=== PATIENT | male | born 1950 | race Caucasian/White ===

== ENCOUNTER → 2017-12-16 09:45 | Outpatient (CLI) | payer MEDICARE, OTHER, SELFPAY ==
[2017-12-16 10:22] LABS: Add Manual Diff / Slide Review NO; Basophils Percent Auto 0.9 % (0-2); Hematocrit 37.1 % (41-53); Lymphocytes Percent Auto 21.3 % (25-40); Mean Corpuscular HGB Conc 32.5 % (30-36); Mean Corpuscular Hemoglobin 25.4 PG (26-34); Mean Corpuscular Volume 78.1 fL (80-100); Neutrophils Absolute Auto 4400 /uL (3000-5900); Neutrophils Percent Auto 63.8 % (50-75); Platelet Count 196 X10^3/uL (150-400); Red Blood Cell Count 4.75 X10^6/uL (4.5-5.9); White Blood Cell Count 6.8 X10^3/uL (4.5-11.0)
[2017-12-16 11:03] LABS: Alanine Aminotransferase 32 IU/L (21-72); Albumin 4.6 g/dL (3.5-5.0); Albumin Globulin Ratio 1.3 (1.0-2.8); Alkaline Phosphatase 105 U/L (38-126); Aspartate Aminotransferase 29 IU/L (17-59); Bilirubin Total 0.7 mg/dL (0.2-1.3); Blood Urea Nitrogen 18 mg/dL (9-20); Calcium 9.5 mg/dL (8.4-10.2); Carbon Dioxide 24 mmol/L (22-32); Chloride 105 mmol/L (98-107); Cholesterol 135 mg/dL (140-199); Estimated Glomerular Filt Rate > 60.0 mL/min (>60); Globulin 3.5 g/dL (1.7-4.1); Glucose 182 mg/dL (80-110); HDL Cholesterol 27 mg/dL (40-60); HEMOLYSIS < 15 (0-50); LDL Cholesterol Calculated 58 mg/dL (<100); Potassium 4.4 mmol/L (3.4-5.1); Sodium 141 mmol/L (137-145); Total Protein 8.1 g/dL (6.3-8.2); Triglycerides 249 mg/dL (35-150)
[2017-12-16 11:32] LABS: Prostate Specific Antigen Scrn 0.584 ng/mL (0.1-4.0)
[2017-12-16 11:33] LABS: Thyroid Stimulating Hormone 2.37 uIU/mL (0.47-4.68)
[2017-12-16 14:58] LABS: Hemoglobin A1C% w Est Avg Glu 9.1 % (4.0-6.0)
== END ==
PROVIDERS: PCP Family Medicine; Visit Provider Family Medicine
DX: E11.65 Type 2 diabetes mellitus with hyperglycemia (principal); I25.10 Atherosclerotic heart disease of native coronary artery without angina pectoris; I10 Essential (primary) hypertension; E78.5 Hyperlipidemia, unspecified; R79.89 Other specified abnormal findings of blood chemistry; Z68.35 Body mass index [BMI] 35.0-35.9, adult; Z12.5 Encounter for screening for malignant neoplasm of prostate
CPT/HCPCS: 36415; 80053; 80061; 83036; 84443; 85025; G0103

== ENCOUNTER → 2017-12-25 09:32 | Outpatient (CLI) | payer MEDICARE, OTHER, SELFPAY ==
--- NOTE | 2017-12-25 09:35 | DI.US.S_ITS ---
PROCEDURE: US ABDOMEN COMPLETE INDICATIONS: abd pain TECHNIQUE: Real-time scanning was performed of the abdominal and retroperitoneal organs, with image documentation. COMPARISON: [facility], CT, ABDOMEN/PELVIS WITH CONTRAST, 03/16/2016, 5:06. [facility], [place], ABDOMEN COMPLETE, 03/16/2016, 6:53. [facility], CT, ABDOMEN/PELVIS WITH CONTRAST, 05/06/2016, 12:18. [facility], [place], ABDOMEN LIMITED, 05/08/2016, 16:33. FINDINGS: Technically difficult exam. Considerable bowel gas. Liver: Liver is normal in size and hyperechoic in echotexture. There is a heterogeneous mass in the right lobe of liver measuring 4.7 x 4.7 x 4.9 cm. Gallbladder: Gallbladder is surgically absent Biliary ducts: Intrahepatic bile ducts are non-dilated. Extrahepatic bile duct caliber measures 12 mm. Normal is 6-7 mm or less in diameter, or 10 mm or less post-cholecystectomy. Pancreas: Pancreas is obscured by bowel gas Spleen: Spleen is enlarged in size at 13.8 cm and homogeneous in echotexture. Kidneys: Kidneys are normal in size and echotexture. Right kidney measures 12.5 cm long; left kidney measures 13.2 cm long. No hydronephrosis or nephrolithiasis. No solid masses. Aorta: Visualized aorta is normal in caliber at less than 3 cm. Iliacs: Iliac vessels are obscured by bowel gas IVC: Not seen secondary to bowel gas Miscellaneous: No free abdominal fluid. There is a ventral hernia 3 cm above the umbilicus, defect measuring 2.3 x 2.8 cm in diameter. IMPRESSION: 1. Heterogeneous intrahepatic mass lesion in the inferior right lobe not seen previously. Advise CT abdomen with liver protocol. 2. Status post cholecystectomy. Dilatation of the extrahepatic bile ducts as expected but still prominent, correlation with liver function tests recommended. 3. Splenomegaly 4. Ventral hernia. Dictated by: Evan Voss M.D. on 12/25/2017 at 10:48 Approved by: Evan Voss M.D. on 12/25/2017 at 10:58
== END ==
PROVIDERS: PCP Family Medicine; Visit Provider Family Medicine
DX: Z90.49 Acquired absence of other specified parts of digestive tract (principal); R16.0 Hepatomegaly, not elsewhere classified; R16.1 Splenomegaly, not elsewhere classified; K43.9 Ventral hernia without obstruction or gangrene; R10.9 Unspecified abdominal pain
CPT/HCPCS: 76700

== ENCOUNTER → 2018-01-06 11:24 | Outpatient (CLI) | payer MEDICARE, OTHER, SELFPAY ==
[2018-01-06 13:09] LABS: BUN Creatinine Ratio 19.1 (6-22); Blood Urea Nitrogen 21 mg/dL (9-20); Estimated Glomerular Filt Rate > 60.0 mL/min (>60)
== END ==
PROVIDERS: PCP Family Medicine; Visit Provider Family Medicine
DX: Z01.818 Encounter for other preprocedural examination (principal)
CPT/HCPCS: 36415; 82565; 84520

== ENCOUNTER → 2018-01-07 12:36 | Outpatient (CLI) | payer MEDICARE, OTHER, SELFPAY ==
--- NOTE | 2018-01-07 12:37 | DI.CT.S_ITS ---
PROCEDURE: CT ABDOMEN WO/W CON INDICATIONS: abnormal u/s; liver mass TECHNIQUE: 4 phase scanning was performed. Non-contrast 5 mm axial sections acquired from the diaphragm to the iliac crests. Following the administration of intravenous contrast, 5 mm thick arterial-phase, portal venous-phase, and 5-minute delayed phase images were acquired through the liver. 5 mm thick coronal and sagittal reformats were performed. For radiation dose reduction, the following was used: automated exposure control, adjustment of mA and/or kV according to patient size. COMPARISON: [facility], CT, ABDOMEN/PELVIS WITH CONTRAST, 05/06/2016, 12:18. [facility], [place], US ABDOMEN COMPLETE, 12/25/2017, 9:44. FINDINGS: Image quality: Excellent. Lung bases: Lung bases are clear. Heart size is normal. Liver: Liver appears normal in size, contour and attenuation. The nearly 5 cm sized hepatic mass suspected on ultrasound it is not evident pre-or postcontrast. Other solid organs: Gallbladder is surgically absent. Biliary system is moderately dilated. Pancreas is atrophic with fatty replacement. Spleen is normal in size and enhancement. No adrenal nodules. Both kidneys demonstrate normal size and enhancement, without hydronephrosis or nephrolithiasis. Small exophytic cortical cyst anterolateral upper pole right kidney. Nodes and vessels: No retroperitoneal or mesenteric adenopathy by size criteria. Aorta and inferior vena cava are normal in size. Bowel and peritoneum: Gastric banding in place. Unenhanced bowel loops are normal in caliber. No free fluid or air. Bones: No suspicious bony lesions. No vertebral body compression fractures. Miscellaneous: Supraumbilical ventral hernia to the right of midline contains nonobstructed bowel. IMPRESSION: 1. no hepatic mass lesions are identified by CT imaging. Suggest limited followup ultrasound in 3-6 months. 2. Status post gastric banding. 3. pancreatic atrophy with fat replacement 4. cortical cyst upper pole right kidney. 5. Status post cholecystectomy with moderate biliary dilatation. 6. ventral hernia containing nonobstructed bowel . Dictated by: Evan Voss M.D. on 01/07/2018 at 13:53 Approved by: Evan Voss M.D. on 01/07/2018 at 14:07
== END ==
PROVIDERS: PCP Family Medicine; Visit Provider Family Medicine
DX: R16.0 Hepatomegaly, not elsewhere classified (principal); K86.89 Other specified diseases of pancreas; N28.1 Cyst of kidney, acquired; K43.9 Ventral hernia without obstruction or gangrene; Z98.84 Bariatric surgery status; Z90.49 Acquired absence of other specified parts of digestive tract
CPT/HCPCS: 74170

== ENCOUNTER → 2018-02-10 09:23 | Outpatient (CLI) | payer MEDICARE, OTHER, SELFPAY ==
[2018-02-10 10:03] LABS: Hemoglobin A1C% w Est Avg Glu 8.2 % (4.0-6.0)
[2018-02-10 10:12] LABS: BUN Creatinine Ratio 16.4 (6-22); Blood Urea Nitrogen 18 mg/dL (9-20); Calcium 9.4 mg/dL (8.4-10.2); Carbon Dioxide 26 mmol/L (22-32); Chloride 109 mmol/L (98-107); Estimated Glomerular Filt Rate > 60.0 mL/min (>60); Glucose 158 mg/dL (80-110); HEMOLYSIS < 15 (0-50); Sodium 147 mmol/L (137-145)
[2018-02-10 10:14] LABS: Potassium 5.6 mmol/L (3.4-5.1)
== END ==
PROVIDERS: PCP Family Medicine; Visit Provider Family Medicine
DX: E11.9 Type 2 diabetes mellitus without complications (principal)
CPT/HCPCS: 36415; 80048; 83036

== ENCOUNTER → 2018-02-19 09:00 | Outpatient (CLI) | payer MEDICARE, OTHER, SELFPAY ==
[2018-02-19 10:13] LABS: Alanine Aminotransferase 40 IU/L (21-72); Albumin 4.5 g/dL (3.5-5.0); Albumin Globulin Ratio 1.5 (1.0-2.8); Alkaline Phosphatase 89 U/L (38-126); Aspartate Aminotransferase 35 IU/L (17-59); BUN Creatinine Ratio 14.5 (6-22); Bilirubin Total 0.6 mg/dL (0.2-1.3); Blood Urea Nitrogen 16 mg/dL (9-20); Calcium 9.9 mg/dL (8.4-10.2); Carbon Dioxide 24 mmol/L (22-32); Chloride 108 mmol/L (98-107); Estimated Glomerular Filt Rate > 60.0 mL/min (>60); Globulin 3.1 g/dL (1.7-4.1); Glucose 112 mg/dL (80-110); HEMOLYSIS < 15 (0-50); Magnesium 1.9 mg/dL (1.6-2.3); Potassium 5.2 mmol/L (3.4-5.1); Sodium 146 mmol/L (137-145); Total Protein 7.6 g/dL (6.3-8.2)
[2018-02-24 09:22] LABS: Lipoprofile NMR SEE SEPERATE REPORT
== END ==
PROVIDERS: PCP Family Medicine; Visit Provider Specialist
DX: I10 Essential (primary) hypertension (principal); E78.5 Hyperlipidemia, unspecified
CPT/HCPCS: 36415; 80053; 83704; 83735

== ENCOUNTER → 2018-10-24 08:51 | Outpatient (CLI) | payer MEDICARE, OTHER, SELFPAY ==
[2018-10-24 09:28] LABS: Hemoglobin A1C% w Est Avg Glu 8.9 % (4.0-6.0)
[2018-10-24 09:55] LABS: BUN Creatinine Ratio 22.2 (6-22); Blood Urea Nitrogen 20 mg/dL (9-20); Calcium 9.3 mg/dL (8.4-10.2); Carbon Dioxide 20 mmol/L (22-32); Chloride 102 mmol/L (98-107); Estimated Glomerular Filt Rate > 60.0 mL/min (>60); Glucose 227 mg/dL (80-110); HEMOLYSIS < 15 (0-50); Sodium 140 mmol/L (137-145)
== END ==
PROVIDERS: PCP Family Medicine; Visit Provider Family Medicine
DX: E11.9 Type 2 diabetes mellitus without complications (principal)
CPT/HCPCS: 36415; 80048; 83036

== ENCOUNTER → 2019-06-11 10:25 | Outpatient (CLI) | payer MEDICARE, OTHER, SELFPAY ==
[2019-06-11 11:32] LABS: Hemoglobin A1C% w Est Avg Glu 9.4 % (4.0-6.0)
[2019-06-11 12:10] LABS: Alanine Aminotransferase 36 IU/L (<50); Albumin 4.4 g/dL (3.5-5.0); Albumin Globulin Ratio 1.5 (1.0-2.8); Alkaline Phosphatase 119 U/L (38-126); Aspartate Aminotransferase 35 IU/L (17-59); Bilirubin Total 0.5 mg/dL (0.2-1.3); Blood Urea Nitrogen 18 mg/dL (9-20); Calcium 9.6 mg/dL (8.4-10.2); Carbon Dioxide 22 mmol/L (22-32); Chloride 104 mmol/L (98-107); Cholesterol 179 mg/dL (140-199); Estimated Glomerular Filt Rate > 60.0 mL/min (>60); Globulin 2.9 g/dL (1.7-4.1); Glucose 214 mg/dL (80-110); HDL Cholesterol 29 mg/dL (40-60); HEMOLYSIS < 15 (0-50); LDL Cholesterol Calculated 99 mg/dL (<100); Magnesium 1.9 mg/dL (1.6-2.3); Potassium 5.2 mmol/L (3.4-5.1); Sodium 138 mmol/L (137-145); Total Protein 7.3 g/dL (6.3-8.2); Triglycerides 255 mg/dL (35-150)
[2019-06-11 12:40] LABS: Thyroid Stimulating Hormone 3.79 uIU/mL (0.47-4.68)
== END ==
PROVIDERS: PCP Family Medicine; Visit Provider Specialist
DX: E78.5 Hyperlipidemia, unspecified (principal); I10 Essential (primary) hypertension; E11.9 Type 2 diabetes mellitus without complications
CPT/HCPCS: 80053; 80061; 83036; 83704; 83735; 84443

== ENCOUNTER → 2019-06-15 10:13 | Outpatient (CLI) | payer MEDICARE, OTHER, SELFPAY ==
[2019-06-18 07:34] LABS: Lipoprofile NMR SEE SEPARATE REPORTS
== END ==
PROVIDERS: Family Provider Specialist; PCP Family Medicine; Visit Provider Family Medicine
DX: E78.5 Hyperlipidemia, unspecified (principal); I10 Essential (primary) hypertension
CPT/HCPCS: 83704

== ENCOUNTER → 2019-07-07 11:13 | Outpatient (CLI) | payer MEDICARE, OTHER, SELFPAY ==
--- NOTE | 2019-07-07 | DI.RAD.S_ITS ---
PROCEDURE: XR FACIAL BONES MIN 3V INDICATIONS: JAW PAIN TECHNIQUE: 3 views of the facial bones were acquired. COMPARISON: None. FINDINGS: Sinuses: Visualized sinuses demonstrate no air-fluid levels or mucosal thickening. Bones: No fractures. No suspicious bony lesions. Orbital rims and zygomatic arches appear intact. Soft tissues: No suspicious soft tissue densities. IMPRESSION: No trauma or mass identified, a source of current symptoms is not seen. Followup by TMJ MRI scanning without contrast is anticipated. Dictated by: Cameron Gallegos M.D. on 07/07/2019 at 13:21 Approved by: Cameron Gallegos M.D. on 07/07/2019 at 13:22
== END ==
PROVIDERS: Family Provider Specialist; PCP Family Medicine; Referring Provider Family Medicine; Visit Provider Family Medicine
DX: R68.84 Jaw pain (principal)
CPT/HCPCS: 70150

== ENCOUNTER → 2019-07-23 09:24 | Outpatient (CLI) | payer MEDICARE, OTHER, SELFPAY ==
--- NOTE | 2019-07-23 09:25 | DI.MRI.S_ITS ---
PROCEDURE: MR TMJ WO CON INDICATIONS: Jaw pain TECHNIQUE: Axial T1 spin echo, coronal and sagittal PD fast spin echo through the temporomandibular joints, in both the closed- and open-mouth positions. COMPARISON: [facility], CR, XR FACIAL BONES MIN 3V, 07/07/2019, 11:43. FINDINGS: Image quality: Excellent. Right: Joint is normally aligned on closed and open-mouth positioning. Articular disk demonstrates anterior displacement in the closed mouth position. There is reduction of the articular disc in the open-mouth position. Small right TMJ joint effusion is noted. Osteoarthritic degenerative changes including subchondral sclerosis and cyst formation and marginal osteophytosis noted in the right temporomandibular joint. Left: Joint is normally aligned on closed and open-mouth positioning. Articular disk demonstrates anterior displacement in the closed mouth position. There is reduction of the anterior articular disc displacement in the open-mouth position. No left TMJ joint effusion. Mild osteoarthritic degenerative changes with marginal osteophytosis noted in the left temporomandibular joint. IMPRESSION: 1. 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 2. Small right TMJ joint effusion. 3. Bilateral anterior displacement of the temporomandibular joint articular disc with reduction in the open-mouth position. Dictated by: Lisa Waldrop MD, PhD on 07/23/2019 at 13:07 Approved by: Lisa Waldrop MD, PhD on 07/23/2019 at 13:30
== END ==
PROVIDERS: Family Provider Specialist; PCP Family Medicine; Referring Provider Family Medicine; Visit Provider Family Medicine
DX: R68.84 Jaw pain (principal); M26.69 Other specified disorders of temporomandibular joint
CPT/HCPCS: 70336

== ENCOUNTER → 2020-06-21 11:02 | Outpatient (CLI) | payer MEDICARE, OTHER, SELFPAY ==
[2020-06-21 13:18] LABS: Alanine Aminotransferase 28 IU/L (<50); Albumin Globulin Ratio 1.3 (1.0-2.8); Alkaline Phosphatase 124 U/L (38-126); Aspartate Aminotransferase 24 IU/L (17-59); BUN Creatinine Ratio 16.2 (6-22); Bilirubin Total 0.5 mg/dL (0.2-1.3); Blood Urea Nitrogen 16 mg/dL (9-20); Calcium 9.1 mg/dL (8.4-10.2); Carbon Dioxide 19 mmol/L (22-32); Chloride 109 mmol/L (98-107); Estimated Glomerular Filt Rate > 60.0 mL/min (>60); Glucose 198 mg/dL (80-110); HEMOLYSIS < 15 (0-50); Magnesium 1.8 mg/dL (1.6-2.3); Potassium 4.6 mmol/L (3.4-5.1); Sodium 138 mmol/L (137-145)
[2020-07-05 14:02] LABS: LDL Particle SEE SEPARATE REPORTS
== END ==
PROVIDERS: Family Provider Specialist; PCP Internal Medicine; Referring Provider Specialist; Visit Provider Specialist
DX: E78.5 Hyperlipidemia, unspecified (principal); I10 Essential (primary) hypertension
CPT/HCPCS: 36415; 80053; 80061; 83704; 83735

== ENCOUNTER → 2020-06-29 15:09 | Outpatient (CLI) | payer MEDICARE, OTHER, SELFPAY ==
[2020-06-29] MEDS: COVID-19 VACC #1, MRNA(MOD) 100 MCG/0.5 ML VIAL IM (15:26)
== END ==
PROVIDERS: Family Provider Specialist; PCP Internal Medicine; Visit Provider Internal Medicine
DX: Z23 Encounter for immunization (principal)
CPT/HCPCS: 0011A; 91301

== ENCOUNTER → 2020-07-27 14:16 | Outpatient (CLI) | payer MEDICARE, OTHER, SELFPAY ==
[2020-07-27] MEDS: COVID-19 VACC #2, MRNA(MOD) 100 MCG/0.5 ML VIAL IM (14:20)
== END ==
PROVIDERS: Family Provider Specialist; PCP Internal Medicine; Visit Provider Internal Medicine
DX: Z23 Encounter for immunization (principal)
CPT/HCPCS: 0012A; 91301

== ENCOUNTER → 2020-08-12 10:19 | Outpatient (CLI) | payer MEDICARE, OTHER, SELFPAY ==
[2020-08-12 11:21] LABS: Alanine Aminotransferase 24 IU/L (<50); Albumin 4.2 g/dL (3.5-5.0); Albumin Globulin Ratio 1.3 (1.0-2.8); Alkaline Phosphatase 115 U/L (38-126); Aspartate Aminotransferase 23 IU/L (17-59); BUN Creatinine Ratio 15.5 (6-22); Bilirubin Total 0.3 mg/dL (0.2-1.3); Blood Urea Nitrogen 16 mg/dL (9-20); Calcium 9.3 mg/dL (8.4-10.2); Carbon Dioxide 20 mmol/L (22-32); Chloride 107 mmol/L (98-107); Cholesterol 105 mg/dL (140-199); Estimated Glomerular Filt Rate > 60.0 mL/min (>60); Globulin 3.2 g/dL (1.7-4.1); Glucose 191 mg/dL (80-110); HDL Cholesterol 26 mg/dL (40-60); HEMOLYSIS < 15 (0-50); LDL Cholesterol Calculated 42 mg/dL (<100); Potassium 4.6 mmol/L (3.4-5.1); Sodium 136 mmol/L (137-145); Total Protein 7.4 g/dL (6.3-8.2); Triglycerides 186 mg/dL (35-150)
[2020-08-12 11:50] LABS: Prostate Specific Antigen Scrn 0.675 ng/mL (0.1-4.0)
[2020-08-12 11:54] LABS: Free T4, Direct Thyroxine 1.11 ng/dL (0.78-2.19)
[2020-08-12 12:08] LABS: Thyroid Stimulating Hormone 3.82 uIU/mL (0.47-4.68)
== END ==
PROVIDERS: Family Provider Specialist; PCP Internal Medicine; Referring Provider Internal Medicine; Visit Provider Internal Medicine
DX: E03.9 Hypothyroidism, unspecified (principal); E78.2 Mixed hyperlipidemia; Z12.5 Encounter for screening for malignant neoplasm of prostate; E11.65 Type 2 diabetes mellitus with hyperglycemia; I10 Essential (primary) hypertension
CPT/HCPCS: 36415; 80053; 80061; 84439; 84443; G0103

== ENCOUNTER → 2020-10-13 12:28 | Outpatient (CLI) | payer MEDICARE, OTHER, SELFPAY ==
[2020-10-13 17:30] LABS: Hemoglobin A1C% w Est Avg Glu 10.6 % (4.0-6.0)
[2020-10-13 18:29] LABS: BUN Creatinine Ratio 15.4 (6-22); Blood Urea Nitrogen 16 mg/dL (9-20); Calcium 9.6 mg/dL (8.4-10.2); Carbon Dioxide 22 mmol/L (22-32); Chloride 107 mmol/L (98-107); Estimated Glomerular Filt Rate > 60.0 mL/min (>60); Glucose 186 mg/dL (80-110); HEMOLYSIS < 15 (0-50); Sodium 140 mmol/L (137-145)
[2020-10-13 18:34] LABS: Potassium 5.6 mmol/L (3.4-5.1)
== END ==
PROVIDERS: Family Provider Specialist; PCP Internal Medicine; Referring Provider Internal Medicine; Visit Provider Internal Medicine
DX: E11.65 Type 2 diabetes mellitus with hyperglycemia (principal); E78.2 Mixed hyperlipidemia; I10 Essential (primary) hypertension; I25.10 Atherosclerotic heart disease of native coronary artery without angina pectoris
CPT/HCPCS: 36415; 80048; 83036

== ENCOUNTER → 2021-02-10 15:05 | Outpatient (CLI) | payer MEDICARE, OTHER, SELFPAY ==
--- NOTE | 2021-02-10 15:08 | DI.RAD.S_ITS ---
PROCEDURE: XR CHEST 2V INDICATIONS: cough TECHNIQUE: 2 views of the chest were acquired. COMPARISON: , , CHEST 1 VIEW, 08/05/2015, 7:40. FINDINGS: Surgical changes and devices: None. Lungs and pleura: Lung volumes are low and Lungs are clear. Mild prominent interstitium likely related to technique. No pleural effusions or pneumothorax. Mediastinum: Mediastinal contours are normal. Heart size is normal. Bones and chest wall: No suspicious bony abnormalities. Soft tissues appear unremarkable. IMPRESSION: Expiratory chest demonstrating no definitive acute cardiopulmonary disease. Dictated by: Jovany Banegas RR Interpreted: Petar Kidd MD on 02/10/2021 at 15:26 Transcribed by: MAYA on 02/10/2021 at 15:26 Approved by: Petar Kidd M.D. on 02/10/2021 at 16:27
== END ==
PROVIDERS: Family Provider Specialist; PCP Internal Medicine; Referring Provider Internal Medicine; Visit Provider Internal Medicine
DX: R05 Cough (principal)
CPT/HCPCS: 71046

== ENCOUNTER → 2021-04-06 09:17 | Outpatient (CLI) | payer MEDICARE, OTHER, SELFPAY ==
--- NOTE | 2021-04-11 10:46 | DIAB.MNT ---
Initial Diabetes Medical Nutrition Therapy Assessment Name: Alexis Deluna Date: 04/06/21 Time: 930-11a Dx: Type II Diabetes Provider: Nicole Triana Learning Style: Listening, Watching, Reading, Hands-on Rylan presents today for initial diabetes visit. States he has had T2Dm for 12 years. FH of DM with sister and maternal grandfather. He endorses getting recent dilated eye exam, dental visit, lab work, and pneumonia vaccine. No flu vaccine yet. Sees a patient clerical assistant. Reports improved BP with most readings 130/70s. Today Rylan tells me that he thinks a barrier to taking care of his diabetes is his indifference to most things. States maybe the citalopram is working too good. He endorses not feeling motivated to do much. States he just doesn't care. We did discuss the possibility that these may be depression symptoms. He is open to this possibility. He was encouraged to discuss further with his provider. Motivation is a reoccurring barrier he describes when discussing being active or managing his health. States he would like to be more social and do more projects. Reports he only has his dog and TV, though eventually also reports support of adult son and mormonism friends. His passed in 2011 and he is semi-retired. States this has led to him being very sedentary and unmotivated to make nutrition changes. Reports overall less energy and steadily increased weight gain. Reports vision issues and cataracts. Plans to have these removed. Has an appt in [facility] in a few months. Reports symptoms of hyperglycemia, including excessive urination and fatigue. Also reports some hypoglycemia with symptoms of excessive hunger, fatigue, and shaking. Reports craving chewing on ice. No non food cravings. Slight anemia per labs. Limited fruit and vegetable intake. Diet Recall: 11a: oatmeal with dried fruit OR two egg omelette with veggies 4p +/-: grilled cheese on sourdough 6pm: frozen dinner or dehydrated soups or ramen Beverages: 60-80oz water, 20oz coffee with TBS vanilla creamer, diet pop 1-2 cans per day Anthropometrics: Ht: 67 Wt: 270# last PCP visit Weight history: Reported UBW 240# Physical Activity: None at this time. Self-Monitoring Blood Glucose: Has Good Deal. Did not bring results to meeting today. Reports FBG often in 150s (H) and during the day can be between 150-250 mg/dL, highest 300 mg/dL after pie. Reports hypoglycemia in the 50s sometimes at night or sometimes during the day. May be r/t limited food intake, not taking glipizide before meals, and combo of glargine and glipizide before bed. Treats lows with bowl of cereal. States evening hypo happens 1-2 x per month. Diabetes Medications: Glargine 50 u BID Glipizide 10 mg BID Metformin 1000 mg BID Pertinent Labs: Past Medical History: (Last Reviewed 07/04/20 @ 10:11 by Bebo Rivera MD) gastric band sx Body mass index (BMI) of 35.0 to 35.9 in adult (09/06/16) BPH (benign prostatic hypertrophy) with urinary retention Calculus of kidney (08/10/15) Coronary artery disease LYLE in LAD, scattered disease otherwise Depression (05/24/14) Essential hypertension (07/05/16) Gastro-esophageal reflux disease without esophagitis (03/27/11) H/O heart artery stent (~08/2015) LYLE x3 LAD Hx of cholecystectomy (~2015) Hypothyroidism (07/05/16) Mixed hyperlipidemia (07/05/16) Obesity, morbid, BMI 40.0-49.9 Sleep apnea, unspecified (03/27/11) Type 2 diabetes mellitus without complication (08/02/16) Nutrition Rx: Plate Method Nutrition Diagnosis: - Physical inactivity r/t stage of change barriers and motivation aeb pt report - Inadequate fiber and iron intake r/t limited fruit and vegetable intake aeb diet recall - Nutrition and food related knowledge deficit r/t limited knowledge about nutrition in relation to DM meds aeb pt report and taking glipizide after meals. - Inadequate protein intake r/t nutrition knowledge deficit aeb diet recall - Excessive sodium intake r/t limited motivation to make meals aeb diet recall and pt report Intervention: This participant was very receptive. Provided appropriate educational handouts. Discussed the following topics: Completed intake assessment. Discussed barriers to care. HgA1c, its correlation to blood glucose numbers, and rationale for goal ADA BG goals of FBG 80-130 mg/dL and 1-2 hr <180 mg/dL Importance of self-monitoring, how often, and when to check. Suggested checking at different times to evaluate meals Plate Method, impact of macronutrients on blood sugar, meal timing, pairing macronutrients and spreading out carbohydrates for better blood glucose management Iron rich foods and importance of fruits and veg When to take glipizide Hypoglycemia treatment with Rule of 15 Recommended servings for carbohydrates at meals and snacks Heart health nutrition Brainstormed appropriate meal plan based on food preferences Role of physical activity and following guidelines for safety Created SMART goals for patient self-care and success. Goals: Bring Freestyle Joe scanner next visit Take glipizide before meals Check BG FBG and 1-2 hours pc Aim for protein with each meals Follow-up: ILDA BAUM follow-up in 2-3 weeks Diane Fleming RDN, CDCES Certified Diabetes Care and Machine Bender P: [phone] Thank you for this referral
== END ==
PROVIDERS: Family Provider Specialist; PCP Internal Medicine; Referring Provider Internal Medicine; Visit Provider Internal Medicine
DX: E11.9 Type 2 diabetes mellitus without complications (principal); Z79.4 Long term (current) use of insulin; Z79.84 Long term (current) use of oral hypoglycemic drugs; Z71.3 Dietary counseling and surveillance
CPT/HCPCS: 97802

== ENCOUNTER → 2021-04-10 13:18 | Outpatient (CLI) | payer MEDICARE, OTHER, SELFPAY ==
[2021-04-10 16:31] LABS: COVID19 -Nasal RAPID Negative (Negative)
== END ==
PROVIDERS: Family Provider Specialist; PCP Internal Medicine; Referring Provider Physician Assistant; Visit Provider Physician Assistant
DX: Z20.822 Contact with and (suspected) exposure to COVID-19 (principal); Z01.812 Encounter for preprocedural laboratory examination
CPT/HCPCS: 87635; C9803

== ENCOUNTER 2021-04-11 07:52 | Day surgery (SDC) | payer MEDICARE, OTHER, SELFPAY ==
[2021-04-11] MEDS: PROPARACAINE 0.5% OPHTH SOL 2 DROPS EYE-OP (08:43)
[2021-04-11 08:44] VITALS: BP 136/74; PULSE 88; RESP 18; TEMP 36.1; O2SAT 96; BMI 42.3
[2021-04-11] MEDS: CATARACT EYE COMPOUND (10 DROPS/SYRINGE) 3 DROPS EYE-OP (08:48)
--- NOTE | 2021-04-11 09:32 | PM.PREOP ---
Pre-operative Note Interval Note History & Physical reviewed/Exam performed by Physician: Yes Changes to H&P: No
--- NOTE | 2021-04-11 09:33 | PM.OP.1 ---
Operative Date/Time/Diagnoses Pre-op diagnosis: Nuclear cataract right eye Procedure & Clinicians Procedure: Cataract Surgery Same procedure as scheduled: Yes Surgeon: Juan Zhao Anesthesia Type: MAC +/- and Sedation Operative Notes Procedure in detail: Patient brought to the operating suite. Tetracaine drops placed in the right eye. Patient was prepped and draped in sterile manner. Wire lid speculum was placed in the eye. Betadine drops were placed on the eye. This was irrigated. Lidocaine jelly was placed on the eye. A paracentesis port was created with a side-port blade. 0.1 mL 1% preservative free lidocaine was injected into the anterior chamber. The anterior chamber was deepened with viscoelastic. 2.6 mm keratome was used to create a temporal clear corneal incision. Cystotome and Utrata forceps were used to create continuous tear capsulorrhexis. Balanced salt solution was used to hydro dissect the nucleus. The phacoemulsification handpiece was inserted and the nucleus was removed using the stop and chop technique. The irrigation aspiration handpiece was inserted and the remaining cortex was removed. Anterior chamber was deepened with viscoelastic. An Live DFR00V intraocular lens with a power of 18.0 was injected into the capsular bag. Irrigation aspiration handpiece was inserted and the remaining viscoelastic was removed. Incision was hydrated with balanced salt solution and found to be leak free with pressure with Weck-Nusrat sponges. 0.1 mL Vigamox injected anterior chamber. 0.3 mL Kenalog 10 mg was injected subconjunctivally. Lid speculum was removed. The patient left the operating room in excellent condition. Complications: none Post-operative Condition: stable Disposition: same day surgery
[2021-04-11] MEDS: MOXIFLOXACIN INJ 4 MG/0.8 ML VIAL 0.5 MG EYE-OP (09:48)
[2021-04-11] MEDS: TETRACAINE 0.5% OPHTH DROPS 4 ML 2 DROPS EYE-OP (09:48)
[2021-04-11] MEDS: HYALURONATE SODIUM 30 MG-10 MG/ML SYRINGES 1 BOX INTRAOCULA (09:48)
[2021-04-11] MEDS: PHENYLEPHRINE/LIDOCAINE VIAL (OR) 0.2 ML EYE-OP (09:48)
[2021-04-11] MEDS: TRIAMCINOLONE 50 MG/5 ML VIAL INJ (09:48)
[2021-04-11] MEDS: LIDOCAINE 2% (GLYDO) 6 ML GEL TOP (09:49)
[2021-04-11] MEDS: BALANCED SALT IRRIG SOLN NO.2 500 ML, EPINEPHrine 1 MG IRR (09:49)
[2021-04-11 10:03] VITALS: BP 120/74; PULSE 55; RESP 16; TEMP 36.6; O2SAT 95
== END 2021-04-11 10:35 | disposition home or self-care (01) ==
PROVIDERS: Family Provider Specialist; PCP Internal Medicine; Referring Provider Ophthalmology; Visit Provider Ophthalmology
PROC: (CPT 66984; principal; 2021-04-11 09:45)
DX: H25.11 Age-related nuclear cataract, right eye (principal); E11.9 Type 2 diabetes mellitus without complications; Z79.84 Long term (current) use of oral hypoglycemic drugs; Z79.4 Long term (current) use of insulin; F32.9 Major depressive disorder, single episode, unspecified; G47.30 Sleep apnea, unspecified; K21.9 Gastro-esophageal reflux disease without esophagitis; I10 Essential (primary) hypertension; I25.10 Atherosclerotic heart disease of native coronary artery without angina pectoris; I25.2 Old myocardial infarction
CPT/HCPCS: 66984; J0171; J2250; J3010; J3301; V2788

== ENCOUNTER → 2021-04-20 12:47 | Outpatient (CLI) | payer MEDICARE, OTHER, SELFPAY ==
--- NOTE | 2021-04-20 17:30 | DIAB.MNTFU ---
Follow-up Diabetes Medical Nutrition Therapy Assessment Name: Alexis Deluna Date: 04/20/21 Time: 105-1210p Dx: Type II Diabetes Don presents for diabetes follow-up. Reports purchasing vegetables, but he did not cook them and they became moldy. States it is difficult for him to find the motivation to cook but loves vegetables. States he has reduced the oats and fruit for breakfast but has not added protein. High carb dinner and snacks some days, ie luke noodles x 2 c or 1-2 poptarts (35-70g CHO), or oatmeal cookies with raisins. States he has been eating some higher protein snacks as well, ie cottage cheese and nuts. Has questions as to whether he can add fruit to cheese. Completed one cataract sx, and plans to complete next in two weeks. Continues with motivation barriers. States he is unsure if this is depression or not. Has been considering seeing a therapist or discussing with provider. Anthropometrics: Ht: 67 Wt: 270# last PCP visit Weight history: Reported UBW 240# Physical Activity: No program currently, but he has a new treadmill that he would like to try. Has had this treadmill for two years and never tried it. State he use to be a very active person prior to 's passing in 2011. Self-Monitoring Blood Glucose: Freestyle joe settin-180mg/dL in range. TIR: 44% ; above: 56% Bolded readings above goal. Hard to determine which numbers are prior to meals or after. ADA goals: 80-130 mg/dL fasting and <180 mg/dL 1-2 hr pc. 04/12: 246, 185, 133, 178, 161 04/13: 143 04/14: 189, 297 04/15, 171, 198 04/16: 158, 181, 284 15: 214 04/18: 112, 147 04/19: 207, 202 04/20: 173, 197 Diabetes Medications: Glargine 50 u BID Glipizide 10 mg BID (taking after meals- no recent hypo) Metformin 1000 mg BID Pertinent Labs: 10/13/20: HgA1c 106% H Past Medical History: (Last Reviewed 07/04/20 @ 10:11 by Bebo Rivera MD) Body mass index (BMI) of 35.0 to 35.9 in adult (04/06/17) BPH (benign prostatic hypertrophy) with urinary retention Calculus of kidney (08/10/15) Coronary artery disease LYLE in LAD, scattered disease otherwise Depression (05/24/14) Essential hypertension (07/05/16) Gastro-esophageal reflux disease without esophagitis (03/27/11) H/O heart artery stent (~08/2015) LYLE x3 LAD Hx of cholecystectomy (~2015) Hypothyroidism (07/05/16) Mixed hyperlipidemia (07/05/16) Obesity, morbid, BMI 40.0-49.9 Sleep apnea, unspecified (03/27/11) Type 2 diabetes mellitus without complication (08/02/16) Nutrition Rx: Plate Method / Meals: 45g CHO ; snacks: 15-30g Nutrition Diagnosis: - Physical inactivity r/t stage of change barriers and motivation aeb pt report- in progress - Inadequate fiber and iron intake r/t limited fruit and vegetable intake aeb diet recall - in progress - Nutrition and food related knowledge deficit r/t limited knowledge about nutrition in relation to DM meds aeb pt report and taking glipizide after meals. - in progress - Inadequate protein intake r/t nutrition knowledge deficit aeb diet recall - improved - Excessive sodium intake r/t limited motivation to make meals aeb diet recall and pt report - in progress Intervention: This participant was very receptive. Provided appropriate educational handouts. Discussed the following topics: Blood sugar review and trends. Impact of food intake on results. Plate Method, impact of macronutrients on blood sugar, meal timing, label reading, pairing macronutrients and spreading out carbohydrates for better blood glucose management Meal planning Signs of depression and impact on motivation Ways to increase veg intake with frozen options Barriers to Phys activity Physical activity plan and progress Created SMART goals for patient self-care and success. Goals: Bring Fast[employer]style Joe scanner next visit- met Take glipizide before meals- in progress Check BG FBG and 1-2 hours pc- met Aim for protein with each meals - met Choose fruit cocktail in its own juice- new Try steamer vegetable bags- new 2 min on treadmill safely before next visit- new Follow-up: ILDA BAUM follow-up in 3-4 weeks Diane Fleming RDN, BAUTISTA Certified Diabetes Care and Veneer Drier Tailer P: [phone] Thank you for this referral
== END ==
PROVIDERS: Family Provider Specialist; PCP Internal Medicine; Referring Provider Internal Medicine; Visit Provider Internal Medicine
DX: E11.9 Type 2 diabetes mellitus without complications (principal)
CPT/HCPCS: 97803

== ENCOUNTER → 2021-05-01 10:27 | Outpatient (CLI) | payer MEDICARE, OTHER, SELFPAY ==
[2021-05-01 14:17] LABS: COVID19 -Nasal RAPID Negative (Negative)
== END ==
PROVIDERS: Family Provider Specialist; PCP Internal Medicine; Referring Provider Physician Assistant; Visit Provider Physician Assistant
DX: Z20.822 Contact with and (suspected) exposure to COVID-19 (principal)
CPT/HCPCS: 87635; C9803

== ENCOUNTER 2021-05-02 06:27 | Day surgery (SDC) | payer MEDICARE, OTHER, SELFPAY ==
[2021-05-02 07:41] VITALS: BP 146/76; PULSE 55; RESP 16; TEMP 36.6; O2SAT 96; BMI 41.5
[2021-05-02] MEDS: PROPARACAINE 0.5% OPHTH SOL 2 DROPS EYE-OP (07:49)
[2021-05-02] MEDS: CATARACT EYE COMPOUND (10 DROPS/SYRINGE) 3 DROPS EYE-OP ×3 (07:50→08:00)
--- NOTE | 2021-05-02 09:09 | PM.PREOP ---
Pre-operative Note Interval Note History & Physical reviewed/Exam performed by Physician: Yes Changes to H&P: No
--- NOTE | 2021-05-02 09:09 | PM.OP.1 ---
Operative Date/Time/Diagnoses Pre-op diagnosis: Nuclear Cataract Left eye Post-op diagnosis: same Procedure & Clinicians Same procedure as scheduled: Yes Surgeon: Juan Zhao Anesthesia Type: MAC +/- and Sedation Operative Notes Procedure in detail: Patient brought to the operating suite. Tetracaine drops placed in the left eye. Patient was prepped and draped in sterile manner. Wire lid speculum was placed in the eye. Betadine drops were placed on the eye. This was irrigated. Lidocaine jelly was placed on the eye. A paracentesis port was created with a side-port blade. 0.1 mL 1% preservative free lidocaine was injected into the anterior chamber. The anterior chamber was deepened with viscoelastic. 2.6 mm keratome was used to create a temporal clear corneal incision. Cystotome and Utrata forceps were used to create continuous tear capsulorrhexis. Balanced salt solution was used to hydro dissect the nucleus. The phacoemulsification handpiece was inserted and the nucleus was removed using the stop and chop technique. The irrigation aspiration handpiece was inserted and the remaining cortex was removed. Anterior chamber was deepened with viscoelastic. An Live DFR00V intraocular lens with a power of 19.0 was injected into the capsular bag. Irrigation aspiration handpiece was inserted and the remaining viscoelastic was removed. Incision was hydrated with balanced salt solution and found to be leak free with pressure with Weck-Nusrat sponges. 0.1 mL Vigamox injected anterior chamber. 0.3 mL Kenalog 10 mg was injected subconjunctivally. Lid speculum was removed. The patient left the operating room in excellent condition. Complications: none Post-operative Condition: stable Disposition: same day surgery
[2021-05-02] MEDS: MOXIFLOXACIN INJ 4 MG/0.8 ML VIAL 0.5 MG EYE-OP (09:28)
[2021-05-02] MEDS: PHENYLEPHRINE/LIDOCAINE VIAL (OR) 0.2 ML EYE-OP (09:28)
[2021-05-02] MEDS: HYALURONATE SODIUM 30 MG-10 MG/ML SYRINGES 1 BOX INTRAOCULA (09:28)
[2021-05-02] MEDS: TRIAMCINOLONE 50 MG/5 ML VIAL INJ (09:28)
[2021-05-02] MEDS: BALANCED SALT IRRIG SOLN NO.2 500 ML, EPINEPHrine 1 MG IRR (09:29)
[2021-05-02] MEDS: TETRACAINE 0.5% OPHTH DROPS 4 ML 2 DROPS EYE-OP (09:30)
[2021-05-02] MEDS: LIDOCAINE 2% (GLYDO) 6 ML GEL TOP (09:30)
[2021-05-02 09:45] VITALS: BP 146/78; PULSE 55; RESP 20; TEMP 36.4; O2SAT 98
== END 2021-05-02 09:48 | disposition home or self-care (01) ==
PROVIDERS: Family Provider Specialist; PCP Internal Medicine; Referring Provider Ophthalmology; Visit Provider Ophthalmology
PROC: (CPT 66984; principal; 2021-05-02 09:15)
DX: H25.12 Age-related nuclear cataract, left eye (principal); E11.9 Type 2 diabetes mellitus without complications; Z79.4 Long term (current) use of insulin; Z79.84 Long term (current) use of oral hypoglycemic drugs; F32.9 Major depressive disorder, single episode, unspecified; G47.30 Sleep apnea, unspecified; K21.9 Gastro-esophageal reflux disease without esophagitis; I10 Essential (primary) hypertension; I25.10 Atherosclerotic heart disease of native coronary artery without angina pectoris; I25.2 Old myocardial infarction
CPT/HCPCS: 66984; J0171; J2250; J3301; V2788

== ENCOUNTER → 2021-05-04 12:58 | Outpatient (CLI) | payer MEDICARE, OTHER, SELFPAY ==
--- NOTE | 2021-05-04 15:35 | DIAB.FU ---
Follow-up Diabetes Education Assessment Name: Alexis Deluna Date: 05/04/21 Time: 105-150p Dx: Type II Diabetes Rylan presents for follow-up diabetes visit. States he has noticed a change in eating habits as of recent. States he has been more conscious of food choices since attending DM ed and nutrition therapy. He did not go to the grocery store since last visit, so has not picked up vegetables or fruit discussed. Plans to go this week. States he is interested in a GLP1. Plans to see endo in June. He may be a good candidate for this medication. One potential contraindication would be his lapband, however he states the band is no longer in use or working. He was rx'd Metformin 1000 mg BID and 500 mg at lunch. He stopped taking the 500 mg out of inconvenience. Given his elevated fastings, he could reincorporate this dose at his evening meal. States he is thinking about d/c'ing glipizide on his own. Advised that he perhaps discuss this with his provider first. Has not changed his glipizide to pre meal, mostly due to difficulty taking it out of his weekly pill organizer. Plans to separate it to take ac. overall, motivation seems to have somewhat improved. Physical Activity: Seems more open to increasing treadmill time. Completed goal of walking 2 min on treadmill. Seems motivated to increase safely. Self-Monitoring Blood Glucose: 4/4 elevated FBG; 2/3 elevated ac lunch; 1/2 elevated ac dinner1/3 elevated pc Uses Freestyle Joe for SMBG. Overall, TIR improved from last visit from 44% to 64%. Above goal improved from 56% to 36%. Moving in the right direction. Date Pre Post Pre Post Pre Post HS 04/28 180 237 100 04/29 86 120 04/30 126 174 05/01 207 05/02 196 05/03 150 296 208 102 05/04 158 Diabetes Medications: Glargine 50 u BID Glipizide 10 mg BID (taking after meals- no recent hypo) Metformin 1000 mg BID (rx'd 2500 mg daily) Pertinent Labs: 10/13/20: HgA1c 10.6% H Past Medical History: (Last Reviewed 07/04/20 @ 10:11 by Bebo Rivera MD) Body mass index (BMI) of 35.0 to 35.9 in adult (09/06/16) BPH (benign prostatic hypertrophy) with urinary retention Calculus of kidney (08/10/15) Coronary artery disease LYLE in LAD, scattered disease otherwise Depression (05/24/14) Essential hypertension (07/05/16) Gastro-esophageal reflux disease without esophagitis (03/27/11) H/O heart artery stent (~08/2015) LYLE x3 LAD Hx of cholecystectomy (~2015) Hypothyroidism (07/05/16) Mixed hyperlipidemia (07/05/16) Obesity, morbid, BMI 40.0-49.9 Sleep apnea, unspecified (03/27/11) Type 2 diabetes mellitus without complication (08/02/16) Intervention: This participant was very receptive. Provided appropriate educational handouts. Discussed the following topics: Recent blood sugar results and trends Medication management and types (handout provided with SE and pro/con of DMmeds) Review of general nutrition recommendations and current intake Physical activity plan and impact on blood sugars Created SMART goals for patient self-care and success. Goals: Take glipizide before meals- in progress Choose fruit cocktail in its own juice- in progress Try steamer vegetable bags- in progress 2 min on treadmill safely before next visit- met Treadmill 5 min 3 x per week safely- new Try taking Metformin at rx'd dose- new Follow-up: ILDA BAUM follow-up in 2-3 weeks Diane Fleming RDN, BAUTISTA Certified Diabetes Care and Grease Cup Filler P: [phone] Thank you for this referral
== END ==
PROVIDERS: Family Provider Specialist; PCP Internal Medicine; Referring Provider Internal Medicine; Visit Provider Internal Medicine
DX: E11.9 Type 2 diabetes mellitus without complications (principal); Z79.4 Long term (current) use of insulin; Z79.84 Long term (current) use of oral hypoglycemic drugs; Z71.3 Dietary counseling and surveillance
CPT/HCPCS: G0108

== ENCOUNTER → 2021-06-07 14:05 | Outpatient (CLI) | payer MEDICARE, OTHER, SELFPAY ==
--- NOTE | 2021-06-13 16:02 | DIAB.FU ---
Follow-up Diabetes Education Assessment Name: Alexis Deluna Date: 06/07/21 Time: 215-3p Dx: Type II Diabetes Rylan presents for follow-up regarding T2Dm. States he has not implemented goals from last visit due to the holidays. Reports continued difficulty with motivation, but he is looking forward to finding some consistency in his schedule. Rylan is experiencing weekly low blood sugar at 10 am despite waking with BG over 130mg/dL. Seems this is related to taking his glipizide HS and Glargine BID without eating for >12hours. Eats dinner around 5pm, +/- snack, then next meal is 11am the next day. States he is open to reincorporating a protein shake in the morning with his meds. The protein powder he likes is quite low carb. He would like to try this without adding additional carbs to see if this helps. We did discuss adding milk or fruit to protein shake. Will re-evaluate next visit. Also he plans to see endo this month. Has not gone grocery shopping since April. Has food in the house but reports not food he really wants to eat and likely not vegetables. Physical Activity: No program Self-Monitoring Blood Glucose: Did not bring his freestyle joe in for review. Plans to use leena for CGM before next visit. Endorses BG >130 fasting. Endorses lows discussed above at 10a (60-80 mg/dL) and lows q 1-2 months in the night of 50-70 mg/dL. Treats lows with any food, ie nuts. Does have gluco tabs at home. Diabetes Medications: Glargine 50 u BID Glipizide 10 mg BID (taking after meals- no recent hypo) now taking only 1 x HS. Metformin 2000 mg daily (500 mg am and 1500 mg pm) Pertinent Labs: No new labs. 10/13/20: HgA1c 10.6% H Past Medical History: (Last Reviewed 07/04/20 @ 10:11 by Bebo Rivera MD) Body mass index (BMI) of 35.0 to 35.9 in adult (09/06/16) BPH (benign prostatic hypertrophy) with urinary retention Calculus of kidney (08/10/15) Coronary artery disease LYLE in LAD, scattered disease otherwise Depression (05/24/14) Essential hypertension (07/05/16) Gastro-esophageal reflux disease without esophagitis (03/27/11) H/O heart artery stent (~08/2015) LYLE x3 LAD Hx of cholecystectomy (~2015) Hypothyroidism (07/05/16) Mixed hyperlipidemia (07/05/16) Obesity, morbid, BMI 40.0-49.9 Sleep apnea, unspecified (03/27/11) Type 2 diabetes mellitus without complication (08/02/16) Intervention: This participant was very receptive. Provided appropriate educational handouts. Discussed the following topics: Recent blood sugar results and trends Medication management Review of general nutrition recommendations and current intake Physical activity plan and impact on blood sugars Prevention of complications: foot care, dental and eye appointments, kidney and heart health, neuropathy, vaccination recommendations Created SMART goals for patient self-care and success. Goals: Take glipizide before meals- not met Choose fruit cocktail in its own juice- not met Try steamer vegetable bags- not met Treadmill 5 min 3 x per week safely-not met Try taking Metformin at rx'd dose- met Bring in phone leena to adjust night alarms and add events- new Try morning protein shake- new get on treadmill 1 x - new Follow-up: ILDA BAUM follow-up in 3-4 weeks Diane Fleming RDN, [facility] Certified Diabetes Care and Telephone Coin Box Collector P: [phone] Thank you for this referral
== END ==
PROVIDERS: Family Provider Specialist; PCP Internal Medicine; Referring Provider Internal Medicine; Visit Provider Internal Medicine
DX: E11.9 Type 2 diabetes mellitus without complications (principal)
CPT/HCPCS: G0108

== ENCOUNTER → 2021-06-29 08:48 | Outpatient (CLI) | payer MEDICARE, OTHER, SELFPAY ==
--- NOTE | 2021-06-29 | DI.ECHO.S_ITS ---
[facility] +---------+ : : [address] : : : [place], [place] : : : : [id number] : : : : Phone: [phone]---------+ Echocardiogram Report + + :Name: MARNI CORONA Study Date: 06/29/2021 Height: 67 in : :[facility] ReadingLocation: Weight: 280 lb : : Gender: Male BSA: 2.3 m2 : :: 1950 Age: 70 yrs BP: 142/86 mmHg: :Reason For Study: ATHEROSCLEROTIC HEART DISEASE OF [place] : :CORONARY ARTERY : :Ordering Physician: ELVIN, : :SALMA Performed By: Digna Hargrove : :Referring: SALMA OCONNOR : + + Interpretation Summary Left ventricular systolic function remains normal with an estimated ejection fraction of 60 to 65% without any focal wall motion abnormality and appears unchanged from previous exam. Left ventricular size is normal with borderline LVH with mild septal thickening but no outflow tract obstruction and appears unchanged from the previous exam. Diastolic function is likely normal with probable normal filling pressures that are possibly lower compared to the previous study. The right ventricle is borderline enlarged with systolic function at the lower limits of normal but appears unchanged from the previous study. The previously seen free wall hypokinesis is no longer evident. Right ventricular systolic pressure is estimated at 27 mmHg with a CVP of 8 mmHg and is likely slightly lower compared to the previous exam. Both atria are normal in size and smaller compared to the previous study. There is aortic valve sclerosis with trivial mitral and tricuspid regurgitation but no significant functional valvular abnormality. The degree of mitral regurgitation appears improved. The ascending aorta is mildly enlarged but measures slightly smaller compared to the previous study. The patient was in sinus bradycardia at 48 to 52 bpm which was similar to the previous exam. Procedure: A two-dimensional transthoracic echocardiogram with color flow and Doppler was performed. The study quality was technically adequate. There is no prior echocardiogram noted for this patient. The patient was in sinus bradycardia with heart rates between 48-52 bpm during the exam. Left Ventricle: The left ventricle is normal in size. There is borderline concentric left ventricular hypertrophy. There is mild proximal septal thickening noted. Left ventricular systolic function appears normal without focal wall motion abnormalities. The ejection fraction is estimated to be 60- 65%. Diastolic parameters suggest probable normal left ventricular diastolic function and normal filling pressures. This is slightly lower compared to the previous study. Right Ventricle: The right ventricle is borderline dilated. Right ventricular systolic function is at the lower limits of normal. This is unchanged compared to the previous study. The previously seen free wall hypokinesis is no longer evident. Atria: Both atria are normal in size. Both atria have mildly decreased in size since the prior echo exam. There is no Doppler evidence for an interatrial shunt. Mitral Valve: There is mild mitral annular calcification. There is trace mitral regurgitation. This is slightly less prominent compared to the previous study. Aortic Valve: The aortic valve is trileaflet. The aortic valve opens well. There is mild aortic valve sclerosis. There is no aortic valve stenosis. No aortic regurgitation is present. Tricuspid Valve: The tricuspid valve is normal in structure and function. There is trace tricuspid regurgitation. The right ventricular systolic pressure is estimated to be at least 27 mmHg based on an estimated right atrial pressure of 8 mm Hg. This is likely lower compared to the previous study. Pulmonic Valve: The pulmonic valve leaflets are thin and pliable; valve motion is normal. There is trace pulmonic regurgitation. Great Vessels: The aortic root is normal size. The ascending aorta is mildly enlarged. The IVC is dilated (diameter is greater than 2.1 cm) yet it collapses greater than 50% with a sniff. This suggests a right atrial pressure of 8 mm Hg. Pericardium/ Pleura There is no pericardial effusion. There is no pleural effusion. MMode/2D Measurements & Calculations LVIDd: 6.0 cm LVOT diam: 2.1 cm LVIDs: 3.9 cm Ao root diam: 3.4 cm FS: 35.0 % asc Aorta Diam: 3.7 cm IVSd: 0.94 cm Ao Arch Diam (Prox Trans): 3.3 cm LVPWd: 0.93 cm LV wing. diameter/BSA (cm/m^2): 2.6 LV sys. diameter/BSA (cm/m^2): 1.7 LA A2 area: 18.4 cm2 RA long axis: 6.0 cm LA A4 area: 25.7 cm2 RA area: 23.4 cm2 LA length (vol): 6.6 cm RA vol: 77.4 ml LA vol: 61.0 ml RA : 33.2 ml/m2 LA vol index: 26.1 ml/m2 IVC diam: 2.1 cm RVD1 (basal): 4.1 cm RVD2 (mid): 3.6 cm TAPSE: 1.6 cm Doppler Measurements & Calculations Ao V2 max: 148.4 cm/sec LVOT Max Dewayne: 81.1 cm/sec Ao V2 mean: 91.6 cm/sec LV V1 max P.6 mmHg Ao max P.8 mmHg LV V1 VTI: 18.6 cm Ao mean P.0 mmHg WESLEY(I,D): 2.0 cm2 Ao V2 VTI: 31.8 cm WESLEY(V,D): 1.8 cm2 sev ratio: 0.59 WESLEY indexed to BSA (cm^2/m^2): 0.85 MV E max dewayne: 80.0 cm/sec TR max dewayne: 215.0 cm/sec MV A max dewayne: 50.6 cm/sec TR max P.5 mmHg MV E/A: 1.6 PA V2 max: 105.8 cm/sec Med Peak E' Dewayne: 4.8 cm/sec PA V2 mean: 75.4 cm/sec E/E' med: 16.7 PA mean P.5 mmHg Lat Peak E' Dewayne: 9.4 cm/sec PA pr(Accel): 31.0 mmHg E/E' lat: 8.5 E/e' average: 12.6 MV dec time: 0.30 sec SV(LVOT): 62.8 ml Reading Physician:12:56 PM
[2021-06-29 13:42] LABS: Alanine Aminotransferase 21 IU/L (<50); Albumin 4.3 g/dL (3.5-5.0); Albumin Globulin Ratio 1.3 (1.0-2.8); Alkaline Phosphatase 87 U/L (38-126); Aspartate Aminotransferase 24 IU/L (17-59); Bilirubin Total 0.5 mg/dL (0.2-1.3); Blood Urea Nitrogen 16 mg/dL (9-20); Calcium 9.4 mg/dL (8.4-10.2); Carbon Dioxide 24 mmol/L (22-32); Chloride 106 mmol/L (98-107); Estimated Glomerular Filt Rate > 60.0 mL/min (>60); Globulin 3.2 g/dL (1.7-4.1); Glucose 206 mg/dL (80-110); HEMOLYSIS < 15 (0-50); Magnesium 1.9 mg/dL (1.6-2.3); Potassium 4.8 mmol/L (3.4-5.1); Sodium 138 mmol/L (137-145); Total Protein 7.5 g/dL (6.3-8.2)
[2021-07-01 08:10] LABS: Cholesterol, Total 127 mg/dL (100-199); HDL-Cholesterol 28 mg/dL (>39); LDL Particle 814 nmol/L (<1000); LDL Size 19.8 nm (>20.5); LDL-Cholsterol 59 mg/dL (0-99); LP-IR Score 76 (<=45); Small LDL- Particle 637 nmol/L (<=527); Triglycerides 249 mg/dL (0-149)
== END ==
PROVIDERS: Family Provider Specialist; PCP Internal Medicine; Referring Provider Specialist; Visit Provider Specialist
DX: I25.10 Atherosclerotic heart disease of native coronary artery without angina pectoris (principal); I47.1 Supraventricular tachycardia; I77.89 Other specified disorders of arteries and arterioles; I35.8 Other nonrheumatic aortic valve disorders; I10 Essential (primary) hypertension; E78.5 Hyperlipidemia, unspecified
CPT/HCPCS: 36415; 80053; 80061; 83704; 83735; 93306

== ENCOUNTER → 2021-07-05 13:51 | Outpatient (CLI) | payer MEDICARE, OTHER, SELFPAY ==
--- NOTE | 2021-07-06 10:33 | DIAB.MNTFU ---
Follow-up Diabetes Medical Nutrition Therapy Assessment Name: Alexis Deluna Date: 07/05/21 Time: 2-245p Dx: Type II Diabetes Don presents today for f/u regarding T2Dm. Endorses cont barrier of motivation. Has h/o depression, though states his current state may be low grade depression. He finds it difficult to motivate himself to do housework or exercise; however after completion of such tasks he feels good. Would like to increase citalopram, but we discussed having a further discussion regarding this with PCP and/or brick mason. He agreed. Did not implement the protein shake as discussed previously, however has also not been having the lows at 10a anymore. This seems r/t more consistent, potentially higher carb, intake while being on vacation with his daughters. Endorses elevated BG in the 200-400 mg/dL more recently. Sees the endo tomorrow and plans to discuss medications options. Seems as though he may benefit from additional agent, whether SGLT2i, GLP1RA or meal time insulin. Has concerns about his cpap being fitted correctly, which could also impact BG to an extent. Anthropometrics: Ht: 67 Wt: 270# last PCP visit Weight history: Reported UBW 240# Physical Activity: Completed 10 min on the treadmill! States he enjoyed it. Self-Monitoring Blood Glucose: Most readings are elevated. One reading this week >400 mg/dL. Joe indicates BG have increased over the last week with lower TIR. He is looking forward to his endo appt tomorrow, which will hopefully make a big difference. 7 days TIR 23% High 181-240: 32% Very high >240: 45% 14 days TIR: 41% High: 25% Very high: 34% Diabetes Medications: Glargine 50 u BID Glipizide 10 mg BID (taking after meals- no recent hypo) now taking only 1 x HS. Metformin 2000 mg daily (500 mg am and 1500 mg pm) Pertinent Labs: No new labs. 10/13/20: HgA1c 10.6% H Past Medical History: (Last Reviewed 07/04/20 @ 10:11 by Bebo Rivera MD) Body mass index (BMI) of 35.0 to 35.9 in adult (09/06/16) BPH (benign prostatic hypertrophy) with urinary retention Calculus of kidney (08/10/15) Coronary artery disease LYLE in LAD, scattered disease otherwise Depression (05/24/14) Essential hypertension (07/05/16) Gastro-esophageal reflux disease without esophagitis (03/27/11) H/O heart artery stent (~08/2015) LYLE x3 LAD Hx of cholecystectomy (~2015) Hypothyroidism (07/05/16) Mixed hyperlipidemia (07/05/16) Obesity, morbid, BMI 40.0-49.9 Sleep apnea, unspecified (03/27/11) Type 2 diabetes mellitus without complication (08/02/16) Nutrition Rx: Plate method Nutrition Diagnosis: Predicted excessive CHO intake r/t vacation food intake aeb pt report and elevated BG Physical inactivity r/t barrier of motivation aeb pt report and elevated BG Intervention: This participant was very receptive. Provided appropriate educational handouts. Discussed the following topics: Blood sugar review and trends. Impact of food intake on results. Barriers to motivation, signs of depression Medication review Nutrition intake while on vacation questions he can ask endo physical activity plan and progress PCP visit recommended and new labs Created SMART goals for patient self-care and success. Goals: Bring in phone leena to adjust night alarms and add events- in progress (will adjust alarms and show events next vist) Try morning protein shake- in progress get on treadmill 1 x - met get on the treadmill again 1x or more- new Discuss meds with endo- new Discuss citalopram with provider- new get cpcp checked- new Follow-up: ILDA BAUM follow-up in 2-4 weeks It really seems as though Don's biggest barrier is his motivation to make changes. It seems as though this may be r/t depression. He reports on a numerous visits that he has a supportive family and mu-ism community, but spends most of his time at home bored. I hope with adjustments to his medications, BG can improve and perhaps his depression can be examined to facilitate more motivation. He seems in agreement with this. Diane Fleming RDN, [facility] Certified Diabetes Care and Plasma Processing Technician P: [phone] Thank you for this referral
== END ==
PROVIDERS: Family Provider Specialist; PCP Internal Medicine; Referring Provider Internal Medicine; Visit Provider Internal Medicine
DX: E11.9 Type 2 diabetes mellitus without complications (principal)
CPT/HCPCS: 97803

== ENCOUNTER → 2021-07-26 12:42 | Outpatient (CLI) | payer MEDICARE, OTHER, SELFPAY ==
--- NOTE | 2021-07-27 09:37 | DIAB.FU ---
Follow-up Diabetes Education Assessment Name: Alexis Deluna Date: 07/26/21 Time: 105-205p Dx: Type II Diabetes Rylan presents for follow-up after seeing Cherie guerrero. States he will be starting Trulicity and Tresiba this week. Lantus d/c'd. Glipizide continued at this time. States he has watched a few youtube videos on these new medications. Feels comfortable in their action, injection sites, and precautions. Does worry about cost of these medications. Spoke with his line controller about increasing citalopram, which provider agreed. Rylan states he feels it has made a small difference in his motivation. Has appt to get cpap checked. Has reduced food portions. Review of his HgA1c from [facility], it has improved! Down to 8.5% from previous 10.6%. Physical Activity: Treadmill 10 min 1 x since last visit. Would like to try inc to 3 x per week. Self-Monitoring Blood Glucose: Endorses continued hyperglycemia, though has improved since last visit when BG were >300. Now most are around 200 per his report. Diabetes Medications: Current: Glargine 50 u BID- will d/c Glipizide 10 mg BID (taking after meals- no recent hypo) now taking only 1 x HS. Metformin 2000 mg daily (500 mg am and 1500 mg pm) New to start this week; Tresiba 90u daily Trulicity weekly 0.75mg Pertinent Labs: 06/2021: HgA1c: 8.5%, T H, Chol: 127, LDL: 59, HDL: 28 Past Medical History: (Last Reviewed 07/04/20 @ 10:11 by Bebo Rivera MD) Body mass index (BMI) of 35.0 to 35.9 in adult (09/06/16) BPH (benign prostatic hypertrophy) with urinary retention Calculus of kidney (08/10/15) Coronary artery disease LYLE in LAD, scattered disease otherwise Depression (05/24/14) Essential hypertension (07/05/16) Gastro-esophageal reflux disease without esophagitis (03/27/11) H/O heart artery stent (~08/2015) LYLE x3 LAD Hx of cholecystectomy (~2015) Hypothyroidism (07/05/16) Mixed hyperlipidemia (07/05/16) Obesity, morbid, BMI 40.0-49.9 Sleep apnea, unspecified (03/27/11) Type 2 diabetes mellitus without complication (08/02/16) Intervention: This participant was very receptive. Provided appropriate educational handouts. Discussed the following topics: Recent blood sugar results New medication review Motivation and impact on lifestyle change Trulicity savings card or coupon resources Physical activity plan and impact on blood sugars and mood Created SMART goals for patient self-care and success. Goals: get on the treadmill again 1x or more- met Discuss meds with endo- met Discuss citalopram with provider- met get cpcp checked- in progress Call about Trulicity saving card or coupons- new Treadmill 3x per week 5-10 min- new Follow-up: ILDA BAUM follow-up in 4 weeks Diane Fleming RDN, [facility] Certified Diabetes Care and Associate Professor Of History P: [phone] Thank you for this referral
== END ==
PROVIDERS: Family Provider Specialist; PCP Internal Medicine; Referring Provider Internal Medicine; Visit Provider Internal Medicine
DX: E11.65 Type 2 diabetes mellitus with hyperglycemia (principal); Z79.4 Long term (current) use of insulin; Z79.84 Long term (current) use of oral hypoglycemic drugs; Z71.3 Dietary counseling and surveillance
CPT/HCPCS: G0108

== ENCOUNTER → 2021-08-23 12:51 | Outpatient (CLI) | payer MEDICARE, OTHER, SELFPAY ==
--- NOTE | 2021-08-24 17:21 | DIAB.MNTFU ---
Follow-up Diabetes Medical Nutrition Therapy Assessment Name: Alexis Deluna Date: 08/23/21 Time: 1-145p Dx: Type II Diabetes Rylan presents for follow-up regarding T2Dm. He has implemented Tresiba and Trulicity. After one week, was having hypoglycemia at night. BG was in the 60s even after eating. Joe alarm kept going off. Stopped glipizide, which helped with lows. No HS glipizide. Now taking one x 10 mg in the morning. States he is not eating much, which is likely r/t GLP1RA inhibiting appetite. Endorses 1.5 meals and 2 snacks per day. Some high carb intake, but BG still in much better place than prior visits. Reports difficulty with expense of Trulicity. Explored savings card but did not want to give personal info in order to access potential savings. Could consider a cheaper daily GLP1RA. Encouraged him to discuss with endo options. Endorses feeling very fatigued despite improved BG. Suspects it may be his cpap fit. Has appt for this in September. Diet Recall: L: 1c oatmeal or TV dinner Sn: cottage cheese ; fruit cup D: 2c mac n cheese Anthropometrics: Wt: 260# Weight history: Lost 10# since endo visit almost two months ago (wt: 270# 07/06/21) Physical Activity: No treadmill Self-Monitoring Blood Glucose: 3 lows in the last week. Two were at 3am, without symptoms. one was 8pm without symptoms. Treating with glucotabs. Lows not confirmed with finger sticks. BG much improved, though still having some elevations per ADA guidelines. Wondering if the CGM is accurately depicting his lows. 24hr TIR 92% 7day TIR 62% 14d TIR 70% Date Pre Post Pre Post Pre Post HS 08/14 166 152 08/15 67 127 195 153 08/16 67 101 167 220 247 cereal 08/19 164 184 153 177 08/20 170 08/22 118 08/24 149 185 116 128 Diabetes Medications: Taking glipizide 10mg in the am (no pm dose) Metformin 500 mg BID Tresiba 90u daily Trulicity 0.75 weekly Pertinent Labs: 06/2021: HgA1c: 8.5% Past Medical History: (Last Reviewed 07/04/20 @ 10:11 by Bebo Rivera MD) Body mass index (BMI) of 35.0 to 35.9 in adult (09/06/16) BPH (benign prostatic hypertrophy) with urinary retention Calculus of kidney (08/10/15) Coronary artery disease LYLE in LAD, scattered disease otherwise Depression (05/24/14) Essential hypertension (07/05/16) Gastro-esophageal reflux disease without esophagitis (03/27/11) H/O heart artery stent (~08/2015) LYLE x3 LAD Hx of cholecystectomy (~2015) Hypothyroidism (07/05/16) Mixed hyperlipidemia (07/05/16) Obesity, morbid, BMI 40.0-49.9 Sleep apnea, unspecified (03/27/11) Type 2 diabetes mellitus without complication (08/02/16) Nutrition Rx: Carbohydrates: Meal:45-60g Snack:15-30g Nutrition Diagnosis: Inconsistent energy intake r/t limited appetite aeb pt report and diet recall Excessive CHO intake r/t limited motivation for meal prep aeb pt report Intervention: This participant was very receptive. Provided appropriate educational handouts. Discussed the following topics: Blood sugar review and trends. Confirming lows with finger prick. Plate Method Rule of 15 using juice Physical activity plan Medication financial plan and ideas Potential sources of fatigue, not BG related Created SMART goals for patient self-care and success. Goals: get cpcp checked- in progress Call about Trulicity saving card or coupons- met Treadmill 3x per week 5-10 min- not met honing machine set up operator tool mini juices - new Finger stick to confirm lows- new Follow-up: ILDA BAUM follow-up in 3-4 weeks Diane Fleming RDN, [facility] Certified Diabetes Care and [employer] P: [phone] Thank you for this referral
== END ==
PROVIDERS: Family Provider Specialist; PCP Internal Medicine; Referring Provider Internal Medicine; Visit Provider Internal Medicine
DX: E11.65 Type 2 diabetes mellitus with hyperglycemia (principal)
CPT/HCPCS: 97803

== ENCOUNTER → 2021-09-26 12:45 | Outpatient (CLI) | payer MEDICARE, OTHER, SELFPAY ==
--- NOTE | 2021-09-26 15:22 | DIAB.FU ---
Follow-up Diabetes Education Assessment Name: Alexis Deluna Date: 09/26/21 Time: 1:10-2p Dx: Type II Diabetes Don presents for diabetes follow-up. Reports overall feeling better and having more energy to do projects. Has endo f/u this month. States he has been paying more attention the BG patterns. Still having lows per CGM, but no symptoms. Treating with juice as discussed. Continued concerns around cost of new meds from endo: Tresiba and Trulicity. He is considering asking provider to go back to cheaper insulin. Really happy about GLP1 RA results, BG and weight loss. Has sleep specialist appt this month. Sleeping better recently, but also endorses waking q 2 hours at night. Feels he is eating better because he is having less cravings. States he is making healthier food choices. Attributes this to GLP1 RA. Has had wt loss since last visit as well. -4.4# since last visit. Reports 1-2 meals + snacks daily. Anthropometrics: Wt: 255.6# today Weight history: 260# last visit 08/26/21 Physical Activity: No program, however he feels he has been moving more with house chores. Self-Monitoring Blood Glucose: Overall BG have improved. 2 significant elevations in FBG this week, bolded below. Few elevated reading later in the day, bolded below. Difficult to determine if ac or pc readings. CGM is reporting quite a few lows in previous weeks. A couple days this month of repeat readings in the 50s-60s. He denies any symptoms associated with the lows. Has h/o feeling lows when they occur but not recently. Has not confirmed any readings with a finger stick. Treats with juice as discussed last visit. Today: 7day TIR 84% 14d TIR 71% Last visit: 7day TIR 62% 14d TIR 70% Date Fasting BG rest of the day 09/20 119 129-153 09/21 137 162 09/22 130 134 09/23 175 159 09/24 123 153, 226 09/25 141-168 09/26 191 187 Diabetes Medications: Taking glipizide 10mg in the am (no pm dose) Metformin 500 mg BID Tresiba 80-85u daily (reduced from 90u) Trulicity 0.75 weekly Pertinent Labs: 06/2021: HgA1c: 8.5% Past Medical History: (Last Reviewed 07/04/20 @ 10:11 by Bebo Rivera MD) Body mass index (BMI) of 35.0 to 35.9 in adult (09/06/16) BPH (benign prostatic hypertrophy) with urinary retention Calculus of kidney (08/10/15) Coronary artery disease LYLE in LAD, scattered disease otherwise Depression (05/24/14) Essential hypertension (07/05/16) Gastro-esophageal reflux disease without esophagitis (03/27/11) H/O heart artery stent (~08/2015) LYLE x3 LAD Hx of cholecystectomy (~2015) Hypothyroidism (07/05/16) Mixed hyperlipidemia (07/05/16) Obesity, morbid, BMI 40.0-49.9 Sleep apnea, unspecified (03/27/11) Type 2 diabetes mellitus without complication (08/02/16) Intervention: This participant was very receptive. Provided appropriate educational handouts. Discussed the following topics: Recent blood sugar results and trends importance of confirming readings with finger stick to see if CGM is accurately depicting lows Medication management: cost and action Current nutrition intake and appetite and weight loss efforts Physical activity and movement and motivation Created SMART goals for patient self-care and success. Goals: press set up mini juices - met Finger stick to confirm lows- in progress Discuss medication cost and options- new Follow-up: ILDA BAUM follow-up in 2 months. Rylan has much improved BG. He is having some lows, but it is unclear if these are true lows given he does not have any symptoms. He will see endo this month and re-evaluate medication regimen. Encouraged him to call sooner prn. he agreed to this plan. Diane Fleming RDN, [facility] Certified Diabetes Care and Vp Training P: [phone] Thank you for this referral
== END ==
PROVIDERS: Family Provider Specialist; PCP Internal Medicine; Referring Provider Internal Medicine; Visit Provider Internal Medicine
DX: E11.65 Type 2 diabetes mellitus with hyperglycemia (principal); Z79.4 Long term (current) use of insulin; Z79.84 Long term (current) use of oral hypoglycemic drugs; Z79.899 Other long term (current) drug therapy; Z71.3 Dietary counseling and surveillance
CPT/HCPCS: G0108

== ENCOUNTER → 2021-10-11 11:10 | Outpatient (CLI) | payer MEDICARE, OTHER, SELFPAY ==
[2021-10-11 12:47] LABS: BUN Creatinine Ratio 13.1 (6-22); Blood Urea Nitrogen 16 mg/dL (9-20); Calcium 9.5 mg/dL (8.4-10.2); Carbon Dioxide 22 mmol/L (22-32); Chloride 109 mmol/L (98-107); Estimated Glomerular Filt Rate > 60 mL/min (>60); Glucose 157 mg/dL (80-110); HEMOLYSIS < 15 (0-50); Magnesium 2.1 mg/dL (1.6-2.3); Potassium 4.7 mmol/L (3.4-5.1); Sodium 139 mmol/L (137-145)
== END ==
PROVIDERS: Family Provider Specialist; PCP Internal Medicine; Referring Provider Specialist; Visit Provider Specialist
DX: I10 Essential (primary) hypertension (principal); I48.0 Paroxysmal atrial fibrillation
CPT/HCPCS: 36415; 80048; 83735

== ENCOUNTER → 2021-10-19 13:37 | Outpatient (CLI) | payer MEDICARE, OTHER, SELFPAY ==
[2021-10-19 16:37] LABS: Microalbumin Urine Random 4.2 mg/dL (0-1.6)
[2021-10-19 16:53] LABS: Creatinine Urine Random 102.7 mg/dL; Microalbumi Creatinin Ratio Ur 40.8 ug/mg CR (<30)
== END ==
PROVIDERS: Family Provider Specialist; PCP Internal Medicine; Referring Provider Student in an Organized Health Care Education/Training Program; Visit Provider Student in an Organized Health Care Education/Training Program
DX: E11.65 Type 2 diabetes mellitus with hyperglycemia (principal)
CPT/HCPCS: 82043; 82570

== ENCOUNTER → 2022-01-09 12:57 | Outpatient (CLI) | payer MEDICARE, OTHER, SELFPAY ==
--- NOTE | 2022-01-09 14:14 | DIAB.MNTFU ---
Follow-up Diabetes Medical Nutrition Therapy Assessment Name: Alexis Deluna Date: 01/09/22 Time: 105-140p Dx: Type II Diabetes Don reports most recent POC HgA1c at endo around 7%. States he continues to see endo for regular check-ups. Reports cont reduced appetite with GLP1RA. States he would prefer to only eat once per day out of convenience. Currently moving to a small home and has increased eating out and convenience meals, ie microwave meals. Tries to choose foods that have more veggies. Likes the prepacked fruit as a snack. Currently eating two meals and a few snacks per day. Also states he feels he wastes a lot of food, ie bread goes bad half way through. seems excited about new home, great view, perfect for skilled nursing continues to have some weight loss. Last recorded wt from sleep clinic was 253# 11/2021, down from 255.6# at our last visit. Reports he really enjoys chewing on ice. No new iron labs, though has history of anemia. Likes current med regimen for DM. Though last visit he was worried about cost, this visit he is less worried and feels it is worth the cost, given the health benefits he has experienced (improved BG and weight loss) Reports improved sleep since seeing sleep clinic. States he does worry about maybe getting too much sleep, ie 10-12hours per day Diet Recall: 11a-1p: omelette with veggies or breakfast sandwich or pizza 8p: small sandwich or leftovers or corndog Snacks: fruit, crackers and cheeese, quesadilla Anthropometrics: Wt: 253# 11/2021 Physical Activity: No program. No progress with treadmill use. No access to treadmill right now until after moving. Family plans to put treadmill in covered outdoor area with a great view for him once he moves. Self-Monitoring Blood Glucose: Having issues with CGM sensor, so no new data. Denies any low symptoms. Has not confirmed lows with finger stick. Endo encouraged Dexcom, but very pricey. Insurance covers his freestyle joe sensors. Today: 90 day info available 2% <70 71% in range 21% elevated 181-240 6% elevated >240 09/2021 visit: 7day TIR 84% 14d TIR 71% Diabetes Medications: Taking glipizide 10mg in the am (no pm dose) Metformin 500 mg BID Tresiba 80u daily (reduced from 90u) Trulicity 0.75 weekly Pertinent Labs: Reports HgA1c of around 7%. No new labs for review this visit. Past Medical History: (Last Updated 10/26/21 @ 14:36 by NAN Gibson) Body mass index (BMI) of 35.0 to 35.9 in adult (09/06/16) BPH (benign prostatic hypertrophy) with urinary retention Calculus of kidney (08/10/15) Coronary artery disease LYLE in LAD, scattered disease otherwise Depression (05/24/14) Essential hypertension (07/05/16) Excessive daytime sleepiness Gastro-esophageal reflux disease without esophagitis (03/27/11) Hypothyroidism (07/05/16) Mixed hyperlipidemia (07/05/16) Obesity, morbid, BMI 40.0-49.9 Obstructive sleep apnea syndrome Sleep apnea, unspecified (03/27/11) Type 2 diabetes mellitus without complication (08/02/16) Nutrition Rx: Carbohydrates: Meal:45-60g Snack:15-30g Nutrition Diagnosis: Inconsistent energy intake r/t limited appetite aeb pt report and diet recall- in progress Excessive CHO intake r/t limited motivation for meal prep aeb pt report- improved/in progress Intervention: This participant was very receptive. Provided appropriate educational handouts. Discussed the following topics: CGM options strategies to increase vegetable intake, especially during moving Healthy frozen food options how to preserve foods and make last longer when living alone, ie freeze bread Physical activity plan after moved in Potential for anemia and ice chewing symptom, enc him to get iron labs next provider visit Discussed impact of anemia on HgA1c CGM trends Importance of confirming lows if no symptoms Medication prices and sustainability Created SMART goals for patient self-care and success. Goals: Finger stick to confirm lows- in progress Discuss medication cost and options- d/c Use a veggie tray to increase veggie intake- new Follow-up: [facility] follow-up in 04 June. Don's DM is well managed. Will follow-up next year per his request for more nutrition focus, meal planning etc. Diane Fleming, ILDA, BAUTISTA Certified Diabetes Care and Ski Production Supervisor P: [phone] Thank you for this referral
== END ==
PROVIDERS: Family Provider Specialist; PCP Internal Medicine; Referring Provider Internal Medicine; Visit Provider Internal Medicine
DX: E11.9 Type 2 diabetes mellitus without complications (principal); Z71.3 Dietary counseling and surveillance; Z79.4 Long term (current) use of insulin; Z79.84 Long term (current) use of oral hypoglycemic drugs; Z79.899 Other long term (current) drug therapy
CPT/HCPCS: 97803

== ENCOUNTER → 2022-03-29 10:32 | Outpatient (CLI) | payer MEDICARE, OTHER, SELFPAY ==
[2022-04-01 08:12] LABS: Cholesterol, Total 143 mg/dL (100-199); HDL-Cholesterol 34 mg/dL (>39); HDL-Particle (Total) 23.8 umol/L (>=30.5); LDL Particle 1023 nmol/L (<1000); LDL Size 19.8 nm (>20.5); LDL-Cholsterol 70 mg/dL (0-99); LP-IR Score 90 (<=45); Small LDL- Particle 803 nmol/L (<=527); Triglycerides 239 mg/dL (0-149)
[2022-04-06 11:06] LABS: Alanine Aminotransferase 20 IU/L (<50); Albumin Globulin Ratio 1.2 (1.0-2.8); Alkaline Phosphatase 120 U/L (38-126); Aspartate Aminotransferase 20 IU/L (17-59); BUN Creatinine Ratio 11.4 (6-22); Bilirubin Total 0.5 mg/dL (0.2-1.3); Blood Urea Nitrogen 13 mg/dL (9-20); Calcium 8.7 mg/dL (8.4-10.2); Carbon Dioxide 23 mmol/L (22-32); Chloride 100 mmol/L (98-107); Estimated Glomerular Filt Rate > 60 mL/min (>60); Globulin 3.4 g/dL (1.7-4.1); Glucose 461 mg/dL (80-110); HEMOLYSIS < 15 (0-50); Potassium 4.2 mmol/L (3.4-5.1); Sodium 135 mmol/L (137-145); Total Protein 7.4 g/dL (6.3-8.2)
== END ==
PROVIDERS: Family Provider Specialist; PCP Internal Medicine; Referring Provider Specialist; Visit Provider Specialist
DX: I10 Essential (primary) hypertension (principal); E78.5 Hyperlipidemia, unspecified
CPT/HCPCS: 36415; 80053; 80061; 83704; 83735

== ENCOUNTER → 2023-02-13 12:39 | Outpatient (CLI) | payer MEDICARE, OTHER, SELFPAY ==
[2023-02-13 13:51] LABS: Hemoglobin A1C% w Est Avg Glu 10.3 % (4.0-6.0)
[2023-02-13 13:56] LABS: Alanine Aminotransferase 26 IU/L (<50); Albumin 3.9 g/dL (3.5-5.0); Albumin Globulin Ratio 1.3 (1.0-2.8); Alkaline Phosphatase 104 U/L (38-126); Aspartate Aminotransferase 23 IU/L (17-59); BUN Creatinine Ratio 11.5 (6-22); Bilirubin Total 0.8 mg/dL (0.2-1.3); Blood Urea Nitrogen 11 mg/dL (9-20); Calcium 9.3 mg/dL (8.4-10.2); Carbon Dioxide 21 mmol/L (22-32); Chloride 106 mmol/L (98-107); Cholesterol 139 mg/dL (140-199); Estimated Glomerular Filt Rate > 60 mL/min (>60); Globulin 2.9 g/dL (1.7-4.1); Glucose 200 mg/dL (80-110); HDL Cholesterol 28 mg/dL (40-60); HEMOLYSIS < 15 (0-50); LDL Cholesterol Calculated 45 mg/dL (<100); Potassium 4.2 mmol/L (3.4-5.1); Sodium 136 mmol/L (137-145); Total Protein 6.8 g/dL (6.3-8.2); Triglycerides 332 mg/dL (35-150)
[2023-02-13 14:13] LABS: Free T4, Direct Thyroxine 1.41 ng/dL (0.78-2.19)
[2023-02-13 14:27] LABS: Thyroid Stimulating Hormone 2.94 uIU/mL (0.47-4.68)
[2023-02-13 18:00] LABS: Creatinine Urine Random 89.8 mg/dL
[2023-02-13 18:03] LABS: Microalbumi Creatinin Ratio Ur 26.7 ug/mg CR (<30); Microalbumin Urine Random 2.4 mg/dL (0-1.6)
== END ==
PROVIDERS: Family Provider Specialist; PCP Internal Medicine; Referring Provider Family Medicine; Visit Provider Family Medicine
DX: E11.65 Type 2 diabetes mellitus with hyperglycemia (principal); E03.9 Hypothyroidism, unspecified; E78.2 Mixed hyperlipidemia; I10 Essential (primary) hypertension
CPT/HCPCS: 36415; 80053; 80061; 82043; 82570; 83036; 84439; 84443